=== PATIENT | male | born 1945 | race Caucasian/White ===

== ENCOUNTER 2022-12-11 13:19 | Outpatient (CLI) | payer MEDICARE, SELFPAY ==
--- NOTE | ~2022-12-11 | PE_ITS ---
EXAMINATION: PET_PETPSMAST_PT DATE: 12/11/2022 16:28 INDICATION: Malignant neoplasm of prostate. TECHNIQUE: 8.448 mCi of piflufolastat F-18 was administered intravenously. Low dose computed tomograp hy (CT) images were acquired from the base of the brain to the proximal thighs for attenuation correc tion and anatomic localization. Automated exposure control was employed. Dose-length product (DLP) wa s 484 mGy-cm. Positron emission tomography (PET) images were acquired in the same distribution. COMPARISON: None FINDINGS: Head/neck: There are no pathologically enlarged lymph nodes. Chest: There is mild scarring in right upper lobe. A calcified left lung nodule and calcified mediast inal lymph nodes are consistent with old granulomatous disease. There is mild atelectasis bilaterally . No pleural effusion. The heart size is normal. There are coronary artery calcifications. No pericar dial effusion. There is a small sliding hiatal hernia. Abdomen/pelvis/proximal thighs: Calcifications in the liver and spleen are consistent with old granul omatous disease. The gallbladder, pancreas, adrenal glands, and kidneys are normal. There is calcifie d atherosclerosis of the aorta and many of the other arteries. The prostate is mildly enlarged. There is increased activity in the prostate involving its left-sided and middle thirds with maximum SUV of 18.4. There are bilateral inguinal hernias containing fat. There is diverticulosis of the colon with out evidence of diverticulitis. The appendix is normal. There are no dilated loops of bowel. There ar e no pathologically enlarged lymph nodes. There is no free intraperitoneal fluid. There is no osseous malignancy. IMPRESSION: 1. Mildly enlarged prostate with increased activity, consistent with primary malignancy. No evidence of metastatic disease. Reviewed, dictated and finalized at location A. IMPRESSION: 1. Mildly enlarged prostate with increased activity, consistent with primary ma lignancy. No evidence of metastatic disease.
== END 2022-12-11 13:20 | disposition home or self-care (01) ==
PROVIDERS: Visit Provider Urology
DX: C61 Malignant neoplasm of prostate (principal); N40.0 Benign prostatic hyperplasia without lower urinary tract symptoms
CPT/HCPCS: 78815; A9595

== ENCOUNTER 2023-03-19 18:10 | Emergency (ER) | payer MEDICARE, SELFPAY ==
[2023-03-19] VITALS (19 sets, daily range): BP systolic 142–177; BP diastolic 68–90; PULSE 64–78; RESP 15–24; TEMP 36.5–36.6; O2SAT 96–100
--- NOTE | ~2023-03-19 | XR_ITS ---
EXAMINATION: XR chest 1V portable DATE: 03/19/2023 18:38 INDICATION: Shortness of breath. TECHNIQUE: A single frontal view of the chest was obtained. COMPARISON: PET CT 12/11/2022 FINDINGS: There is no pneumonia, pleural effusion, or pneumothorax. The heart size is normal. IMPRESSION: 1. No acute cardiopulmonary disease. Reviewed, dictated and finalized at location E. TATION OPERATOR
--- NOTE | 2023-03-19 18:22 | ECG_ITS ---
Measurements Intervals [place] Rate: 69 P: 40 ID: [id number] QRS: 11 QRSD: 89 T: -7 QT: 401 QTc: 431 Interpretive Statements SINUS RHYTHM NONSPECIFIC ST ABNORMALITY BORDERLINE ECG NO PREVIOUS ECG AVAILABLE FOR COMPARISON Electronically Signed On 03-20-2023 15:23:05 SOCK LINING EXAMINER by Jer Cespedes M.D.
[2023-03-19 18:36] LABS: Glucose Point of Care 210 mg/dl (65-105)
[2023-03-19 18:37] LABS: Basophils Absolute Auto 0.03 K/mm3 (0.00-0.10); Basophils Percent Auto 0.4 % (0.0-1.0); Eosinophils Absolute Auto 0.11 K/mm3 (0.02-0.50); Eosinophils Percent Auto 1.6 % (1.0-6.0); Hematocrit 38.4 % (37.0-46.0); Hemoglobin 13.6 g/dL (12.4-15.3); Immature Granulocyte Absolute 0.02 K/mm3 (0.00-0.00); Immature Granulocyte Percent A 0.3 % (0.0-0.0); Lymphocytes Absolute Auto 2.42 K/mm3 (1.10-4.50); Mean Corpuscular HGB Conc 35.4 g/dL (32.0-36.0); Mean Corpuscular Hemoglobin 31.7 pg (27.0-31.0); Mean Corpuscular Volume 89.5 fL (78.0-102.0); Mean Platelet Volume 9.6 fl (8.7-11.0); Monocytes Absolute Auto 0.42 K/mm3 (0.10-0.90); Monocytes Percent Auto 6.1 % (2.0-11.0); Neutrophils Absolute Auto 3.9 K/mm3 (1.7-7.2); Neutrophils Percent Auto 56.6 % (50.0-70.0); Platelet Count Result 148 K/mm3 (150-420); Red Blood Count 4.29 M/mm3 (4.70-6.10); Red Cell Distribution Width 12.6 % (11.6-14.4); White Blood Count 6.9 K/mm3 (4.8-10.8)
[2023-03-19] MEDS: SODIUM CHLORIDE 0.9% IV 1,000 ML 999 ML IV CONT (18:38)
[2023-03-19] MEDS: ASPIRIN 81 MG CHEWABLE TABLET 324 MG PO (18:38)
[2023-03-19] MEDS: MAG HYDROX/AL HYDROX/SIMETH 30 ML UDC PO (18:38)
--- NOTE | 2023-03-19 18:48 | PC.NURSE ---
PT IS RESTING ON STRETCHER WITH AT BEDSIDE, WATCHING TV WITHOUT DISTRESS. IVF ARE INFUSING ORDERED WITHOUT DIFFICULTY. NAD NOTED. WILL CONTINUE TO MONITOR.
[2023-03-19 18:51] LABS: INR 0.9; Partial Thromboplastin Time 25.9 SEC (23.90-30.70); Prothrombin Time 10.3 Seconds (9.50-12.10)
--- NOTE | 2023-03-19 18:56 | ED.GENADULT ---
HPI - General Adult General Chief complaint: Chest Pain Stated complaint: chest pain Time Seen by Provider: 03/19/23 18:20 History of Present Illness HPI narrative: This is a 77-year-old male history type 2 diabetes presenting with chest pain. Patient says at 3:00 a.m. he developed an achy pain in the center of his chest radiating to his L arm/jaw. It was severe at that time that is now completely resolved. Pain comes and goes throughout the day. He had similar symptoms last week. No exacerbating symptoms. Pain is not associated with diaphoresis, nausea, vomiting, diarrhea, exertion. Patient has never had a cardiac workup. no other complaints. Related Data Home Medications Medication Instructions Recorded Confirmed metformin 500 mg tablet,extended 50 mg PO BID 03/19/23 03/19/23 release 24 hr Allergies Allergy/AdvReac Type Severity Reaction Status Date / Time No Known Allergies Allergy Unknown Verified 03/19/23 18:24 [facility] Past Medical History Medical History Diabetes Social History Social History Smoking status: Never smoker Alcohol intake: never Exam Narrative: APPEARANCE: No apparent distress. Head: atraumatic. EYES: EOMI, NOSE: Atraumatic NECK: Trachea midline RESPIRATORY: No increased rate of breathing , clear to auscultation CARDIOVASCULAR: RRR, no peripheral edema ABDOMINAL: Non-distended, soft nontender no guarding or rebound MUSCULOSKELETAl: No obvious deformities NEURO: Alert. Moving 4/4 extremities SKIN:: Warm, dry. Normal color PSYCHIATRIC: Normal affect Course Vital Signs Vital signs: Vital Signs Temperature 97.7 F 03/19/23 18:10 Pulse Rate 72 03/19/23 18:10 Respiratory Rate 20 03/19/23 18:10 Blood Pressure 177/76 H 03/19/23 18:10 Pulse Oximetry 100 03/19/23 18:10 Oxygen Delivery Room Air 03/19/23 18:10 Temperature 97.7 F 03/19/23 18:10 Pulse Rate 70 03/19/23 21:01 Respiratory Rate 24 H 03/19/23 21:01 Blood Pressure 143/71 H 03/19/23 21:01 Pulse Oximetry 97 03/19/23 21:01 Oxygen Delivery Room Air 03/19/23 18:15 Medical Decision Making MDM Narrative Medical decision making narrative: -Course: 77-year-old male presenting with intermittent chest pain throughout the day. High sensitivity troponin came back elevated at 228.5. Initial ekg and repeat showed nonspecific T-wave changes 3 in AVF. patient started on Lovenox, given aspirin. patient will be transferred to outside hospital for NSTEMI. 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 Metabolic panel unremarkable. hsTrop 228 -> pending Independent EKG interpretation: Rhythm [sinus], Rate [69], [place] -[normal], [place] -[normal], QRS [narrow], QTC [normal], T waves -[ nonspecific changes in 3 and AVF], ST Segments - [Negative for concerning elevations] Final interpretations: normal sinus rhythm nonspecific T-wave changes 3 and AVF. repeat unchanged. Chest x-ray unremarkable. -Discussion of Management/Consultants:[facility] Transfer LineDr. Mcdaniels - Hospitalist -Interventions: 324 asa, Lovenox, maalox -Shared decision making / Disposition: Transferred. Vital Signs Vital Signs: Vital Signs Temperature 97.7 F 03/19/23 18:10 Pulse Rate 72 03/19/23 18:10 Respiratory Rate 20 03/19/23 18:10 Blood Pressure 177/76 H 03/19/23 18:10 Pulse Oximetry 100 03/19/23 18:10 Oxygen Delivery Room Air 03/19/23 18:10 Temperature 97.7 F 03/19/23 18:10 Pulse Rate 70 03/19/23 21:01 Respiratory Rate 24 H 03/19/23 21:01 Blood Pressure 143/71 H 03/19/23 21:01 Puls
--- NOTE | 2023-03-19 19:00 | PC.NURSE ---
Report received, Pt resting, VSS, monitor shows SR. Pt states he remains pain free, awaiting lab tests and results.
[2023-03-19 19:08] LABS: Alanine Aminotransferase 32 U/L (16-63); Albumin Level 3.6 g/dL (3.4-5.0); Alkaline Phosphatase 72 U/L (46-116); Anion Gap 6 mmol/L (8-16); Aspartate Amino Transferase 19 U/L (15-37); Bilirubin,Total 0.5 mg/dL (0.00-1.00); Blood Urea Nitrogen 8 mg/dL (7-18); Calcium 8.7 mg/dL (8.5-10.1); Carbon Dioxide 31 mmol/L (21-32); Chloride 100 mmol/L (98-108); Estimated CRCL calculation 49 ml/min; Estimated Glomerular Filt Rate > 60; Glucose 237 mg/dL (70-99); Lipase 35 U/L (16-77); Magnesium 1.8 mg/dL (1.8-2.4); Osmolality Calculated 290 mOsm/kg (285-295); Potassium 3.5 mmol/L (3.5-5.1); Sodium 137 mmol/L (136-145); Total Protein 6.3 g/dL (6.4-8.2)
[2023-03-19 19:10] LABS: Troponin I 228.5 ng/L (0.00-60.4)
--- NOTE | 2023-03-19 19:25 | PC.NURSE ---
ERP Dr Neumann in to discuss abnormal lab values of elevated trop level and recommends transfer to manager operations at [place]. Pt not sure at this time if he wants to go due to feeling well. Again advised need for transfer to cardiology and discussed in length possible outcomes of not going to [facility] operations.
--- NOTE | 2023-03-19 19:34 | PC.NURSE ---
POC discussed between pt and his and they have decided to go for transfer and see cardiology.
--- NOTE | 2023-03-19 19:40 | ECG_ITS ---
Measurements Intervals [place] Rate: 65 P: 36 MA: 161 QRS: 7 QRSD: 90 T: -15 QT: 409 QTc: 426 Interpretive Statements SINUS RHYTHM NONSPECIFIC ST ABNORMALITY BORDERLINE ECG COMPARED TO ECG 03/19/2023 18:27:49 NO SIGNIFICANT CHANGES Electronically Signed On 03-20-2023 15:23:25 DIRECTOR OF REIMBURSEMENT by Jer Cespedes M.D.
[2023-03-19] MEDS: ENOXAPARIN 100 MG/ML SYRINGE (19:59)
--- NOTE | 2023-03-19 20:30 | PC.NURSE ---
Pt resting, condition stable, talking on phone to family. Awaiting call backs for transfer.
[2023-03-19 21:44] LABS: Troponin I 336.1 ng/L (0.00-60.4)
--- NOTE | 2023-03-19 22:04 | PC.NURSE ---
Pt taken to BR and back to bed, he denies any c/p or SOB. Monitor continues to show SR and VSS at this time. Awaiting call back for report to be given.
--- NOTE | 2023-03-19 22:36 | PC.NURSE ---
Pt sitting bedside and update on transfer and room dispostion given to pts . [facility] will transfer pt to [facility]. Pt danni, MAU.
--- NOTE | 2023-03-19 22:55 | PC.NURSE ---
Report given [facility] and pt transferred to cot s difficulty. VSS, pt stable at time of transfer.
== END 2023-03-19 23:00 | disposition short-term general hospital (02) ==
PROVIDERS: Emergency Provider Emergency Medicine; PCP Family Medicine
DX: I21.4 Non-ST elevation (NSTEMI) myocardial infarction (principal); E11.9 Type 2 diabetes mellitus without complications; Z79.84 Long term (current) use of oral hypoglycemic drugs
CPT/HCPCS: 36415; 71045; 80053; 82948; 83690; 83735; 84484; 85025; 85610; 85730; 93005; 96360; 96372; 99291; A9270; J1650; J7030

== ENCOUNTER 2023-08-19 08:00 | Outpatient (RCR) | payer MEDICARE, SELFPAY | END 2023-08-19 14:34 | disposition home or self-care (01) | PROVIDERS: PCP Family Medicine; Visit Provider Internal Medicine Cardiovascular Disease | DX: I21.4 Non-ST elevation (NSTEMI) myocardial infarction (principal); I25.10 Atherosclerotic heart disease of native coronary artery without angina pectoris; Z95.1 Presence of aortocoronary bypass graft | CPT/HCPCS: 93798 ==

== ENCOUNTER 2023-08-20 08:46 | Outpatient (CLI) | payer MEDICARE, SELFPAY ==
[2023-08-20 09:53] LABS: Alanine Aminotransferase 53 U/L (16-63); Alkaline Phosphatase 63 U/L (46-116); Anion Gap 14 mmol/L (4-12); Aspartate Amino Transferase 32 U/L (15-37); Blood Urea Nitrogen 16 mg/dL (7-18); Calcium 8.7 mg/dL (8.5-10.1); Carbon Dioxide 22 mmol/L (21-32); Chloride 104 mmol/L (98-108); Estimated Glomerular Filt Rate > 60; Glucose 158 mg/dL (70-99); Osmolality Calculated 294 mOsm/kg (285-295); Potassium 4.5 mmol/L (3.5-5.1); Sodium 140 mmol/L (136-145); Total Protein 6.6 g/dL (6.4-8.2)
[2023-08-21 15:30] LABS: Cholesterol 95 mg/dL (0-200); HDL Direct 41 mg/dL (40-60); LDL Cholesterol Calculated 26 mg/dL (<130); Triglycerides 139 mg/dL (0-150)
== END 2023-08-20 08:47 | disposition home or self-care (01) ==
LOC: CHSLAB 08:52
PROVIDERS: PCP Family Medicine
DX: I21.4 Non-ST elevation (NSTEMI) myocardial infarction (principal); I25.10 Atherosclerotic heart disease of native coronary artery without angina pectoris; Z95.1 Presence of aortocoronary bypass graft; E11.9 Type 2 diabetes mellitus without complications; E78.5 Hyperlipidemia, unspecified
CPT/HCPCS: 36415; 80053; 80061

== ENCOUNTER 2023-12-30 14:00 | Emergency (ER) | payer MEDICARE, SELFPAY ==
[2023-12-30] VITALS (12 sets, daily range): BP systolic 113–136; BP diastolic 65–78; PULSE 71–80; RESP 13–22; TEMP 36.4–37; O2SAT 91–98
--- NOTE | ~2023-12-30 | XR_ITS ---
EXAMINATION: XR chest 1V portable DATE: 12/30/2023 14:29 INDICATION: Shortness of breath. TECHNIQUE: A single frontal view of the chest was obtained. COMPARISON: Chest single view 03/19/2023 FINDINGS: A calcified left lung nodule and calcified mediastinal lymph nodes are consistent with old granulomatous disease. There is no pneumonia, pleural effusion, or pneumothorax. The heart size is no rmal. Median sternotomy wires and mediastinal surgical clips are seen, likely from prior coronary art porfirio bypass grafting. IMPRESSION: 1. No acute cardiopulmonary disease. Reviewed, dictated and finalized at location A.
--- NOTE | 2023-12-30 14:02 | ECG_ITS ---
Test Date: 2023-12-30 14:07:05 Measurements Intervals [place] Rate: 75 P: 72 AR: 162 QRS: 32 QRSD: 121 T: 17 QT: 393 QTc: 442 Interpretive Statements SINUS RHYTHM RIGHT BUNDLE BRANCH BLOCK BASELINE ARTIFACT- II, III, AVL, AVF, V4-V6 ABNORMAL ECG No previous ECG available for comparison Electronically Signed On 12-30-2023 14:53:51 CDT by Ermias Christopher D.O.
--- NOTE | 2023-12-30 14:04 | ED.GENADULT ---
HPI - General Adult General Chief complaint: Chest Pain Stated complaint: DIZZY Time Seen by Provider: 12/30/23 14:03 History of Present Illness HPI narrative: Pato is a 78 M with a PMH of type II diabetes, HLD, CAD that presented to the ED after his sample clerk referred him. He has had a few days of intermittent sharp chest pain associated with some dyspnea and lightheadedness. He currently does not have any chest pain. No vomiting. Related Data Home Medications Medication Instructions Recorded Confirmed metformin 500 mg tablet,extended 50 mg PO BID 03/19/23 12/30/23 release 24 hr Allergies Allergy/AdvReac Type Severity Reaction Status Date / Time No Known Allergies Allergy Unknown Verified 12/30/23 14:13 Review of Systems Review of Systems: All systems reviewed & are unremarkable except as noted in HPI and below PMFSH Past Medical History Medical History Diabetes Social History Social History Smoking status: Never smoker Alcohol intake: never Exam Const: General: cooperative, healthy appearing, comfortable, no acute distress, well developed, alert, awake and Physically active Orientation/consciousness: oriented to person, oriented to place and oriented to time HENMT: Head: normal to inspection, normocephalic and atraumatic Ears: hearing grossly normal bilaterally and external ears normal Face/Nose/Sinus: Normal external nose present Eyes: General: appearance normal, both eyes and all related structures Periorbital: periorbital findings normal Sclera: sclerae normal Pupils: Equal, round and reactive pupils present Neck: Neck: normal visual inspection Chest: Chest palpation & inspection: normal inspection of the chest Resp: Effort & Inspection: normal respiratory effort, able to speak in complete sentences and no respiratory distress Auscultation: clear to auscultation bilaterally Cardio: Jugular venous distension: no JVD Rate: regular rate Rhythm: regular rhythm GI: Inspection: normal to inspection GI Palp: Yes Soft to palpation Auscultation: normal bowel sounds Skin: General skin exam: normal color and no rashes or lesions noted Neuro: General: oriented to person, oriented to place and oriented to time Cranial nerves: Yes Equal, round and reactive pupils present Extrem: General: normal to inspection Course Course Emergency Course: Ordered labs, CXR, and EKG EKG showed NSR with a rate of 75, right bundle branch block but no ST elevation/depression EXAMINATION: XR chest 1V portable DATE: 12/30/2023 14:29 INDICATION: Shortness of breath. TECHNIQUE: A single frontal view of the chest was obtained. COMPARISON: Chest single view 03/19/2023 FINDINGS: A calcified left lung nodule and calcified mediastinal lymph nodes are consistent with old granulomatous disease. There is no pneumonia, pleural effusion, or pneumothorax. The heart size is normal. Median sternotomy wires and mediastinal surgical clips are seen, likely from prior coronary artery bypass grafting. IMPRESSION: 1. No acute cardiopulmonary disease. CBC was unremarkable. Low tropinin and only mildly elevated BNP. Given that he has no chest pain, dyspnea, cough or lightheadedness currently his symptoms are unlikely to be cardiac. We discussed slow position changes and to f/u with his sample clerk. Vital Signs Vital signs: Vital Signs Pulse Oximetry 95 12/30/23 14:00 Temperature 98.6 F 12/30/23 14:02 Pulse Rate 74 12/30/23 15:10 Respiratory Rate 16 12/30/23 15:10 Blood Pressure 136/70 12/30/23 15:11 Pulse Oximetry 96 12/30/23 15:10 Oxygen Delivery Room Air 12/30/23 14:02 Medical Decision Making Vital Signs Vital Signs: Vital Signs Pulse Oximetry 95 12/30/23 14:00 Temperature 98.6 F 12/30/23 14:02 Pulse Rate 74 12/30/23 15:10 Respiratory Rate 1
[2023-12-30 14:29] LABS: Basophils Absolute Auto 0.04 K/mm3 (0.00-0.10); Basophils Percent Auto 0.4 % (0.0-1.0); Eosinophils Absolute Auto 0.06 K/mm3 (0.02-0.50); Eosinophils Percent Auto 0.6 % (1.0-6.0); Hematocrit 36.7 % (37.0-46.0); Hemoglobin 13.1 g/dL (12.4-15.3); Immature Granulocyte Absolute 0.03 K/mm3 (0.00-0.00); Immature Granulocyte Percent A 0.3 % (0.0-0.0); Lymphocytes Absolute Auto 3.22 K/mm3 (1.10-4.50); Lymphocytes Percent Auto 33.1 % (18.0-42.0); Mean Corpuscular HGB Conc 35.7 g/dL (32-36); Mean Corpuscular Hemoglobin 31.3 pg (27.0-31.0); Mean Corpuscular Volume 87.6 fL (78.0-102.0); Mean Platelet Volume 9.8 fl (8.7-11.0); Monocytes Percent Auto 6.2 % (2.0-11.0); Neutrophils Absolute Auto 5.77 K/mm3 (1.70-7.20); Neutrophils Percent Auto 59.4 % (50.0-70.0); Platelet Count Result 166 K/mm3 (150-420); Red Blood Count 4.19 M/mm3 (4.70-6.10); Red Cell Distribution Width 12.5 % (11.6-14.4); White Blood Count 9.7 K/mm3 (4.8-10.8)
[2023-12-30 14:41] LABS: Prothrombin Time 10.8 Seconds (9.50-12.1)
[2023-12-30 14:50] LABS: Alanine Aminotransferase 56 U/L (16-63); Albumin Level 3.5 g/dL (3.4-5.0); Alkaline Phosphatase 71 U/L (46-116); Anion Gap 7 mmol/L (4-12); Aspartate Amino Transferase 33 U/L (15-37); Bilirubin,Total 1.1 mg/dL (0.00-1.00); Blood Urea Nitrogen 12 mg/dL (7-18); Calcium 9.1 mg/dL (8.5-10.1); Carbon Dioxide 28 mmol/L (21-32); Chloride 103 mmol/L (98-108); Estimated CRCL calculation 54 ml/min; Estimated Glomerular Filt Rate > 60; Glucose 137 mg/dL (70-99); Magnesium 1.8 mg/dL (1.8-2.4); NT Pro B Type Natriuretic Pept 500 pg/mL (0-450); Osmolality Calculated 287 mOsm/kg (285-295); Potassium 4.1 mmol/L (3.5-5.1); Sodium 138 mmol/L (136-145); Total Protein 6.7 g/dL (6.4-8.2); Troponin I 8.9 ng/L (0.00-60.4)
== END 2023-12-30 15:30 | disposition home or self-care (01) ==
PROVIDERS: Emergency Provider Family Medicine; PCP Family Medicine
DX: R07.89 Other chest pain (principal); E78.5 Hyperlipidemia, unspecified; E11.9 Type 2 diabetes mellitus without complications; I25.10 Atherosclerotic heart disease of native coronary artery without angina pectoris; Z79.84 Long term (current) use of oral hypoglycemic drugs
CPT/HCPCS: 36415; 71045; 80053; 83735; 83880; 84484; 85025; 85610; 93005; 99284

== ENCOUNTER 2023-12-31 11:49 | Emergency (ER) | payer MEDICARE, SELFPAY ==
[2023-12-31] VITALS (11 sets, daily range): BP systolic 110–138; BP diastolic 56–74; PULSE 71–80; RESP 17–22; TEMP 36.8; O2SAT 97–100
--- NOTE | ~2023-12-31 | XR_ITS ---
XR chest 1V portable 12/31/2023 12:15 Indication: Shortness of breath Procedure: AP portable chest Comparison: 12/30/2023 Findings: Status post median sternotomy for CABG. Heart size is normal. No focal air space disease, p ulmonary edema, pleural effusion or suspected pneumothorax. Impression: 1: No acute cardiopulmonary disease. Reviewed, dictated and finalized at location B. Impression: 1: No acute cardiopulmonary disease.
--- NOTE | 2023-12-31 11:55 | ECG_ITS ---
Test Date: 2023-12-31 12:03:55 Measurements Intervals [place] Rate: 78 P: 62 MT: 158 QRS: 11 QRSD: 125 T: 22 QT: 398 QTc: 455 Interpretive Statements SINUS RHYTHM RIGHT BUNDLE BRANCH BLOCK [120+ ms QRS DURATION, UPRIGHT V1, 40+ ms S IN I/aVL/V4/V5/V6] ABNORMAL ECG Compared to ECG 12/30/2023 14:07:05 No significant changes Electronically Signed On 01-01-2024 13:44:43 CDT by Perez Wiggins M.D.
--- NOTE | 2023-12-31 12:00 | ED.NEUROSD ---
HPI - Neuro Symptoms/Deficit General Chief Complaint: Weakness Stated Complaint: numbness in left side Time Seen by Provider: 12/31/23 11:54 Source: patient and family Mode of arrival: ambulatory Limitations: no limitations History of Present Illness HPI Narrative: Patient is a 78-year-old male with a left-sided body deficit since yesterday. This started late afternoon yesterday. He was in the ER for chest pain which was a negative evaluation yesterday. He has been having slight difficulties over the last few days which may represent TIA. He started to have numbness on his left upper extremity more than his left lower extremity and further having some weakness on the left upper and lower extremity. He presents 1 day after symptoms began. He is not tPA candidate. Also our CT scan machine is down at this time and he will be transferred quickly to another facility to get Neurology and CT scan. Onset (ago): day(s) (1) Timing confirmed by: spouse Location: left face, left arm and left leg History of same: No Severity: moderate Quality: weak and numb Relieving factors: none Exacerbating factors: none Context: gradual onset On Anticoagulants: No Associated symptoms: shortness of breath Treatments Prior to Arrival: other medication Related Data Home Medications Medication Instructions Recorded Confirmed metformin 500 mg tablet,extended 50 mg PO BID 03/19/23 12/31/23 release 24 hr atorvastatin 40 mg tablet 40 mg PO DAILY 12/31/23 12/31/23 gabapentin 300 mg capsule 300 mg PO HS 12/31/23 12/31/23 Allergies Allergy/AdvReac Type Severity Reaction Status Date / Time No Known Allergies Allergy Unknown Verified 12/31/23 11:58 Review of Systems Review of Systems: All systems reviewed & are unremarkable except as noted in HPI and below Constitutional: Constitutional: Reports no additional constitutional complaints Eyes: Eyes: Reports no additional eye complaints ENT: Reports system reviewed and no additional complaints, except as documented Cardiovascular: Cardiovascular: Reports no additional cardiovascular complaints Respiratory: Respiratory: Reports no additional respiratory complaints Gastrointestinal: Gastrointestinal: Reports no additional gastrointestinal complaints Genitourinary: Genitourinary: Reports no additional male genitourinary complaints Musculoskeletal: Musculoskeletal: Reports no additional musculoskeletal complaints Integumentary/Breasts: Skin/Breast: Reports system reviewed and no additional complaints, except as docu Neurologic: Reports system reviewed and no additional complaints, except as documented Psychiatric: Psychiatric: Reports no additional psychiatric complaints Endocrine: Endocrine: Reports no additional endocrine complaints Hematologic/Lymphatic: Hematologic/Lymphatic: Reports no additional hematologic/lymphatic complaints Allergic/Immunologic: Allergic/Immunologic: Reports no additional allergic/immunologic complaints [facility] Past Medical History Medical History Diabetes Social History Social History Smoking status: Never smoker Alcohol intake: never Exam Const: General: healthy appearing Nutritional Appearance: well nourished Orientation/consciousness: patient oriented x3 HENMT: Head: normal to inspection Ears: external ears normal Face/Nose/Sinus: Normal external nose present Eyes: Conjunctivae: conjunctivae normal Pupils: Equal, round and reactive pupils present EOM: EOMs intact bilaterally Neck: Neck: normal visual inspection Chest: Chest palpation & inspection: normal inspection of the chest Resp: Effort & Inspection: normal respiratory effort and not labored Auscultation: clear to auscultation bilaterally and no crackles Cardio: Rate: regular rate Rhythm: regular rhythm Heart sounds: no murmurs GI: Inspection: non-distended GI Palp:
[2023-12-31 12:09] LABS: Glucose Point of Care 144 mg/dl (65-105)
[2023-12-31 12:12] LABS: Basophils Absolute Auto 0.03 K/mm3 (0.00-0.10); Basophils Percent Auto 0.4 % (0.0-1.0); Eosinophils Absolute Auto 0.05 K/mm3 (0.02-0.50); Eosinophils Percent Auto 0.6 % (1.0-6.0); Hematocrit 36.2 % (37.0-46.0); Hemoglobin 12.9 g/dL (12.4-15.3); Immature Granulocyte Absolute 0.03 K/mm3 (0.00-0.00); Immature Granulocyte Percent A 0.4 % (0.0-0.0); Lymphocytes Absolute Auto 2.75 K/mm3 (1.10-4.50); Lymphocytes Percent Auto 35.3 % (18.0-42.0); Mean Corpuscular HGB Conc 35.6 g/dL (32-36); Mean Corpuscular Hemoglobin 31.2 pg (27.0-31.0); Mean Corpuscular Volume 87.4 fL (78.0-102.0); Mean Platelet Volume 9.6 fl (8.7-11.0); Monocytes Absolute Auto 0.49 K/mm3 (0.10-0.90); Monocytes Percent Auto 6.3 % (2.0-11.0); Neutrophils Absolute Auto 4.43 K/mm3 (1.70-7.20); Platelet Count Result 146 K/mm3 (150-420); Red Blood Count 4.14 M/mm3 (4.70-6.10); Red Cell Distribution Width 12.4 % (11.6-14.4); White Blood Count 7.8 K/mm3 (4.8-10.8)
[2023-12-31 12:26] LABS: Partial Thromboplastin Time 26.1 Sec (23.9-30.70)
[2023-12-31 12:28] LABS: Alanine Aminotransferase 53 U/L (16-63); Albumin Level 3.6 g/dL (3.4-5.0); Alkaline Phosphatase 72 U/L (46-116); Anion Gap 8 mmol/L (4-12); Aspartate Amino Transferase 32 U/L (15-37); Bilirubin,Total 1.2 mg/dL (0.00-1.00); Blood Urea Nitrogen 10 mg/dL (7-18); Calcium 9.2 mg/dL (8.5-10.1); Carbon Dioxide 28 mmol/L (21-32); Chloride 103 mmol/L (98-108); Estimated CRCL calculation 52 ml/min; Estimated Glomerular Filt Rate > 60; Glucose 150 mg/dL (70-99); Osmolality Calculated 290 mOsm/kg (285-295); Potassium 3.9 mmol/L (3.5-5.1); Sodium 139 mmol/L (136-145); Total Protein 6.8 g/dL (6.4-8.2)
--- NOTE | 2023-12-31 12:59 | PC.NURSE ---
NO CHANGE IN PT STATUS AT THIS TIME. PT IS AWAITING ACCEPTING FACILITY FOR TRANSFER. AT BEDSIDE, UPDATED ON STATUS. WILL CONTINUE TO MONITOR. VSS.
--- NOTE | 2023-12-31 13:02 | PC.NURSE ---
CT NOT PERFORMED AT THIS FACILITY DUE TO MACHINE BEING DOWN FOR REPAIRS UPON PT ARRIVAL
--- NOTE | 2023-12-31 13:13 | PC.NURSE ---
PT REPORTS DAUGHTER NOTICED THE UNSTEADY GAIT AT 1300 YESTERDAY. PT REPORTS HE NOTICED THE SYMPTOMS AROUND 1700. PT REPORTS HE HAS NOTICED NO CHANGE TODAY FROM ONSET OF SYMPTOMS. PT REPORTS HE HAS HAD INTERMITTENT DIZZINESS OVER THE PAST 3-4 DAYS. PT HAS BEEN ACCEPTED TO [facility] FOR TRANSFER TO ER FOR CT SCAN PRIOR TO ADMISSION. PT AND ARE AWARE OF PLAN OF CARE. WILL CONTINUE TO MONITOR.
== END 2023-12-31 13:46 | disposition short-term general hospital (02) ==
PROVIDERS: Emergency Provider Emergency Medicine
DX: I63.9 Cerebral infarction, unspecified (principal); E11.9 Type 2 diabetes mellitus without complications; Z79.84 Long term (current) use of oral hypoglycemic drugs; Z79.899 Other long term (current) drug therapy
CPT/HCPCS: 36415; 71045; 80053; 82948; 85025; 85610; 85730; 93005; 99285

== ENCOUNTER 2024-01-07 14:58 | Outpatient (RCR) | payer MEDICARE, SELFPAY ==
--- NOTE | 2024-01-07 16:14 | OPREHPOC ---
Outpatient Therapy Plan of Care This is a Multidisciplinary Plan of Care that may contain components documented by all disciplines (PT, OT, and ST.) PT Problem 1 PT Problem #1 Knowledge Deficit PT Goal 1 Goal / Goal Update The patient will be independent in a home exercise program. Target Visit 4 PT Problem 2 PT Problem #2 Impaired Balance PT Goal 1 Goal / Goal Update 1. The patient will demonstrate at least 20/28 on the Tinetti Balance Scale score indicating a decreased fall risk. 2. The patient will perform the TUG test in under 12 seconds indicating a low fall risk. 3. The patient will report no falls. Target Visit 10 PT Problem 3 PT Problem #3 Impaired Functional Mobil PT Goal 1 Goal / Goal Update The patient will be able to ambulate 1,200 feet with the least restrictive assistive device in order to improve community/household ambulation. The patient will ascend/descend a flight of stairs reciprocally to improve household navigation. Target Visit 10 PT Problem 4 PT Problem #4 Impaired Strength PT Goal 1 Goal / Goal Update The patient will demonstrate right ankle eversion strength of 4-/5 or greater to improve stability for balance and gait. Target Visit 10
--- NOTE | 2024-01-07 16:15 | PTOPEVAL1 ---
Assessment and note entered by Nicolasa Burrell, PT Evaluation Information Assessment Status Evaluation Diagnosis CVA Other ICD-10 Condition Codes ( R26.89, I63.9 PT) Onset 12/30/23 Subjective Information Pato Snell reports he had a stroke on . He was changing the oil on his car and he kept stumbling and he was having numbness in the left UE and LE so he went to the ER. He had a chest x- ray and had blood work that came back normal so he was sent home. The next day the numbness returned in his left hand so he went back to the ER. He was transferred to a higher level hospital and he had EKG, chest x-ray, MRI of his brain, and an ultrasound of his neck, heart, and side. He was diagnosed with two small strokes so he was admitted for 2 days. He is having numbness in his left hand and he is dropping items. He is also having difficulty walking noting his left foot will turn in occasionally. He is also noting burning on the front of his left lower leg and numbness around the left outer ankle. He denies falling and has not been using an assistive device . He lives with his and his son. They reside in a 1.5 story home and he has steps inside and outside the house. He has 5 steps to get in the house and 13 inside the home between levels. He does have a bathroom on the main level but the bedrooms are on the 2nd level. He is taking stairs one at a time currently and there is a hand rail on the right side when he is ascending. He does not have grab bars and does not own any assistive devices. Past medical history is significant for a quadruple bypass on 03/19/23. He is currently wearing a hear monitor for 14 days. Reported Pain Level Pain Score 0: Self Report Assessment PT Clinical Summary Pato Snell presents 8 days s/p CVA. He has difficulty with walking, balance, and stair negotiation. He objectively demonstrates decreased left LE strength primarily in the ankle, decreased static and dynamic balance, and altered gait. He is a high fall risk at this time. He will benefit from skilled PT to address these limitations. Plan of Care Interventions Gait Training,Neuro Re-education,Patient/Caregiver Educati,Therapeutic Activities,Therapeutic Exercise PT Services Indicated Yes Treatment Frequency and 3 times a week for 10 visits Duration These treatments will address the objective and functional deficits as defined above. The patient will be advanced safely and appropriately in order for the patient to progress towards his/her prior level of function. Additional exercises will be introduced and as well as a comprehensive home exercise program upon discharge, if needed, ?to ensure carryover of functional gains achieved in the clinic. This treatment plan has been reviewed and agreement upon by the patient.
--- NOTE | 2024-01-08 11:38 | BUOTOPEVAL ---
Assessment and note entered by Susana Elizondo OT Evaluation Information Assessment Status Evaluation Diagnosis CVA ICD-10 Condition Codes (OT) M62.81 Onset 12/30/2023 Reported Pain Level Pain Score 0: Self Report Pain Score 0: Self Report Assessment OT Clinical Summary The patient is a 78 year old male who was referred to outpatient OT due to imbalance and weakness from CVA. The patient has PMH of CABG, external heart monitor placement. The patient previously was independent with all ADLs/IADLs, and demonstrated WNL UE function with strength, coordination, proprioception and reaction time. The patient now demonstrates moderate dysfunction of L UE due to stroke, the patient demonstrate moderately impaired fine motor coordination, minimal to moderate proprioceptive dysfunction of L arm, moderate numbness of L hand, 4- to 4/5 strength of L arm, and delayed reaction time for L UE and visual tracking that affect his ability to care for grandchildren, perform IADLs such as changing car oil and cooking meals. He demonstrates ataxia with L UE during any functional movement during assessment. The patient requires skilled OT to address deficits and return to [facility] for maximal independence. Plan of Care Interventions Therapeutic Exercise,Manual Therapy,Neuro Re- education,Therapeutic Activities,Hot Pack/Cold Pack,Cognitive Function,Sensory Integrative Techn, Self-Care/Home Management OT Services Indicated Yes Treatment Frequency and 3x/week for 12 visits. Duration These treatments will address the objective and functional deficits as defined above. The patient will be advanced safely and appropriately in order for the patient to progress towards his/her prior level of function. Additional exercises will be introduced and as well as a comprehensive home exercise program upon discharge, if needed, ?to ensure carryover of functional gains achieved in the clinic. This treatment plan has been reviewed and agreement upon by the patient.
--- NOTE | 2024-01-08 11:44 | OPREHPOC ---
Outpatient Therapy Plan of Care This is a Multidisciplinary Plan of Care that may contain components documented by all disciplines (PT, OT, and ST.) PT Problem 1 PT Problem #1 Knowledge Deficit PT Goal 1 Goal / Goal Update The patient will be independent in a home exercise program. Target Visit 4 PT Problem 2 PT Problem #2 Impaired Balance PT Goal 1 Goal / Goal Update 1. The patient will demonstrate at least 20/28 on the Tinetti Balance Scale score indicating a decreased fall risk. 2. The patient will perform the TUG test in under 12 seconds indicating a low fall risk. 3. The patient will report no falls. Target Visit 10 PT Problem 3 PT Problem #3 Impaired Functional Mobil PT Goal 1 Goal / Goal Update The patient will be able to ambulate 1,200 feet with the least restrictive assistive device in order to improve community/household ambulation. The patient will ascend/descend a flight of stairs reciprocally to improve household navigation. Target Visit 10 PT Problem 4 PT Problem #4 Impaired Strength PT Goal 1 Goal / Goal Update The patient will demonstrate right ankle eversion strength of 4-/5 or greater to improve stability for balance and gait. Target Visit 10 OT Problem 1 OT Problem #1 Knowledge Deficit OT Goal 1 Goal / Goal Update The patient will demonstrate 100% knowledge and return demonstration of UE HEP in order to improve function of L UE for IADLs. Target Visit 12 OT Problem 2 OT Problem #2 Impaired Coordination OT Goal 1 Goal / Goal Update The patient will demonstrate increased fine motor coordination by performing 9-hole peg test in < 35 seconds with L UE for increased success in buttoning shirts. Target Visit 12 OT Goal 2 Goal / Goal Update The patient will demonstrate increase proprioceptive awareness and fluid movement of L UE with minimal to no ataxia noticed during functional tasks. Target Visit 12 OT Problem 3 OT Problem #3 Impaired Strength OT Goal 1 Goal / Goal Update The patient will demonstrate increased UE strength by demonstrating 5/5 muscle strength of L UE shoulder and elbow for ability to change his oil. Target Visit 12 OT Problem 4 OT Problem #4 Impaired Functional ADLs OT Goal 1 Goal / Goal Update The patient will demonstrate increased reaction time and visual scanning by performing Trails A in <50 seconds with no mistakes and perform Target Tap on [employer] machine striking >55 taps with L UE maintaining shoulder in flexion and >30 taps with handrail taps in order to decrease ataxia and improve function of L UE for homemaking tasks. - Target tap (set to 5:5 for 60 seconds - balance off) +41 taps with L UE up throughout assessment +25 taps with L UE touching hand rail after each strike Target Visit 12 OT Goal 2 Goal / Goal Update The patient will increase executive function skills by performing Trails B in 119 seconds with no mistakes in order to achieve norms needed to perform grocery shopping safely. Target Visit 12
--- NOTE | 2024-01-29 09:44 | OPREHPOC ---
Outpatient Therapy Plan of Care This is a Multidisciplinary Plan of Care that may contain components documented by all disciplines (PT, OT, and ST.) PT Problem 1 PT Problem #1 Knowledge Deficit PT Goal 1 Goal / Goal Update The patient will be independent in a home exercise program. Target Visit 4 Progress Met PT Problem 2 PT Problem #2 Impaired Balance PT Goal 1 Goal / Goal Update 1. The patient will demonstrate at least 20/28 on the Tinetti Balance Scale score indicating a decreased fall risk. 2. The patient will perform the TUG test in under 12 seconds indicating a low fall risk. 3. The patient will report no falls. Target Visit 10 Progress Met PT Problem 3 PT Problem #3 Impaired Functional Mobil PT Goal 1 Goal / Goal Update The patient will be able to ambulate 1,200 feet with the least restrictive assistive device in order to improve community/household ambulation. The patient will ascend/descend a flight of stairs reciprocally to improve household navigation. Target Visit 10 Progress Met PT Problem 4 PT Problem #4 Impaired Strength PT Goal 1 Goal / Goal Update The patient will demonstrate right ankle eversion strength of 4-/5 or greater to improve stability for balance and gait. Target Visit 10 Progress Met OT Problem 1 OT Problem #1 Knowledge Deficit OT Goal 1 Goal / Goal Update The patient will demonstrate 100% knowledge and return demonstration of UE HEP in order to improve function of L UE for IADLs. Target Visit 12 OT Problem 2 OT Problem #2 Impaired Coordination OT Goal 1 Goal / Goal Update The patient will demonstrate increased fine motor coordination by performing 9-hole peg test in < 35 seconds with L UE for increased success in buttoning shirts. Target Visit 12 OT Goal 2 Goal / Goal Update The patient will demonstrate increase proprioceptive awareness and fluid movement of L UE with minimal to no ataxia noticed during functional tasks. Target Visit 12 OT Problem 3 OT Problem #3 Impaired Strength OT Goal 1 Goal / Goal Update The patient will demonstrate increased UE strength by demonstrating 5/5 muscle strength of L UE shoulder and elbow for ability to change his oil. Target Visit 12 OT Problem 4 OT Problem #4 Impaired Functional ADLs OT Goal 1 Goal / Goal Update The patient will demonstrate increased reaction time and visual scanning by performing Trails A in <50 seconds with no mistakes and perform Target Tap on [employer] machine striking >55 taps with L UE maintaining shoulder in flexion and >30 taps with handrail taps in order to decrease ataxia and improve function of L UE for homemaking tasks. - Target tap (set to 5:5 for 60 seconds - balance off) +41 taps with L UE up throughout assessment +25 taps with L UE touching hand rail after each strike Target Visit 12 OT Goal 2 Goal / Goal Update The patient will increase executive function skills by performing Trails B in 119 seconds with no mistakes in order to achieve norms needed to perform grocery shopping safely. Target Visit 12
--- NOTE | 2024-01-29 09:44 | PTOPDC ---
Assessment and note entered by Nicolasa Burrell, PT Evaluation Information Assessment Status Discharge Diagnosis CVA Other ICD-10 Condition Codes ( R26.89. I63.9 PT) Onset 12/30/23 Subjective Information Pato Snell reports he is getting stronger since he started PT but still gets winded easily when he used to be fine. He denies falls and feels his balance is good most of the time. He denies pain. Reported Pain Level Pain Score 0: Self Report Pain Score 0: Self Report Assessment PT Clinical Summary Pato Snell has completed 10 skilled PT visits following a CVA. He is reporting no falls, no pain, and improved strength. His only complaint is getting winded easily. He objectively demonstrates improved strength in the LE, improved balance both static and dynamic, improved gait, and improved endurance. He is independent in a home exercise program for LE strength and balance exercises. He was educated today on continue aerobic activity independently and referred to participate in our fall prevention class twice a week. He has met all PT goals and will be discharged to an independent HEP. Plan of Care PT Services Indicated No
--- NOTE | 2024-02-03 12:07 | OTOPPROG ---
Assessment and note entered by Susana Elizondo, OT Evaluation Information Assessment Status Progress Assessment OT Clinical Summary The patient demonstrates significant progress toward fine motor coordination, UE strength, decreased ataxic movements with L UE, increased visual scanning and executive function skills, and improvement in proprioceptive sensation. These improvements have resulted in the patient demonstrating increased skill and accuracy with fine motor coordination tasks and decreased the amount of dropped items throughout his daily life. He reports he still will have jerky movements that make doing meal preparation hard and he thinks that OT has been very beneficial for him. He reports he is not back to where he was before his stroke but feels much stronger and has better coordination. The patient continues to require skilled OT to address fine motor coordination, ataxic movements/proprioceptive sensation, L UE strength without compensation from other muscle groups, and in hand manipulation with L UE to improve homemaking tasks. The patient demonstrates good progress toward goals and reasonable expectation for improvement with POC. Plan of Care Interventions Therapeutic Exercise,Manual Therapy,Neuro Re- education,Therapeutic Activities,Hot Pack/Cold Pack,Cognitive Function,Electrical Stimulation, Sensory Integrative Techn,Self-Care/Home Management OT Services Indicated Yes Treatment Frequency and 2x/week for 10 visits. Duration These treatments will address the objective and functional deficits as defined above. The patient will be advanced safely and appropriately in order for the patient to progress towards his/her prior level of function. Additional exercises will be introduced and as well as a comprehensive home exercise program upon discharge, if needed, ?to ensure carryover of functional gains achieved in the clinic. This treatment plan has been reviewed and agreement upon by the patient.
--- NOTE | 2024-03-04 12:27 | PCOTNOTE ---
Patient no showed appointment this date. Patient was called with no answer.
--- NOTE | 2024-03-17 12:55 | BUOTOPDC ---
Assessment and note entered by Susana Elizondo, OT Evaluation Information Assessment Status Discharge Diagnosis CVA ICD-10 Condition Codes (OT) Generalized muscle weakness M62.81 Onset 12/30/2023 Reported Pain Level Pain Score 0: Self Report Pain Score 0: Self Report Pain Score 0: Self Report Pain Score 0: Self Report Pain Score 0: Self Report Pain Score 0: Self Report Pain Score 0: Self Report Pain Score 0: Self Report Pain Score 0: Self Report Pain Score 0: Self Report Pain Score 0: Self Report Pain Score 0: Self Report Pain Score 0: Self Report Pain Score 0: Self Report Pain Score 0: Self Report Pain Score 0: Self Report Pain Score 0: Self Report Pain Score 0: Self Report Pain Score 0: Self Report Pain Score 0: Self Report Pain Score 0: Self Report Pain Score 0: Self Report Pain Score 0: Self Report Pain Score 0: Self Report Pain Score 0: Self Report Pain Score 0: Self Report Pain Score 0: Self Report Pain Score 0: Self Report Pain Score 0: Self Report Pain Score 0: Self Report Pain Score 0: Self Report Pain Score 0: Self Report Assessment OT Clinical Summary The patient demonstrates significant progress in visual scanning, executive functioning, proprioceptive awareness, fine motor coordination and UE strength leading to increased independence and endurance with daily tasks. The patient demonstrates functional safety awareness and minimal fatigue during all resistive exercises. He demonstrates good control of L hand during fine motor tasks and demonstrates no ataxia as he did at [facility]. The patient demonstrates 0% on QuickDASH questionnaire with no issues during daily life tasks. The patient has met all of his goals and is discharged at this time with UE HEP to continue to maintain function. The patient demonstrates good understanding. Plan of Care Interventions Therapeutic Exercise,Manual Therapy,Neuro Re- education,Therapeutic Activities,Hot Pack/Cold Pack,Cognitive Function,Electrical Stimulation, Sensory Integrative Techniques,Self-Care/Home Management OT Services Indicated No
--- NOTE | 2024-03-17 12:55 | OPREHPOC ---
Outpatient Therapy Plan of Care This is a Multidisciplinary Plan of Care that may contain components documented by all disciplines (PT, OT, and ST.) PT Problem 1 PT Problem #1 Knowledge Deficit PT Goal 1 Goal / Goal Update The patient will be independent in a home exercise program. Target Visit 4 Progress Met PT Problem 2 PT Problem #2 Impaired Balance PT Goal 1 Goal / Goal Update 1. The patient will demonstrate at least 20/28 on the Tinetti Balance Scale score indicating a decreased fall risk. 2. The patient will perform the TUG test in under 12 seconds indicating a low fall risk. 3. The patient will report no falls. Target Visit 10 Progress Met PT Problem 3 PT Problem #3 Impaired Functional Mobility PT Goal 1 Goal / Goal Update The patient will be able to ambulate 1,200 feet with the least restrictive assistive device in order to improve community/household ambulation. The patient will ascend/descend a flight of stairs reciprocally to improve household navigation. Target Visit 10 Progress Met PT Problem 4 PT Problem #4 Impaired Strength PT Goal 1 Goal / Goal Update The patient will demonstrate right ankle eversion strength of 4-/5 or greater to improve stability for balance and gait. Target Visit 10 Progress Met OT Problem 1 OT Problem #1 Knowledge Deficit OT Goal 1 Goal / Goal Update The patient will demonstrate 100% knowledge and return demonstration of UE HEP in order to improve function of L UE for IADLs. GOAL MET Target Visit 12 Progress Met OT Problem 2 OT Problem #2 Impaired Coordination OT Goal 1 Goal / Goal Update The patient will demonstrate increased fine motor coordination by performing 9-hole peg test in < 28 seconds with L UE for increased success in buttoning shirts. PN 02/03/24 GOAL PARTIALLY MET; UPGRADED 31 seconds DISCHARGE: 29 seconds; DISCONTINUE Target Visit 22 Progress Met OT Goal 2 Goal / Goal Update The patient will demonstrate increase proprioceptive awareness and fluid movement of L UE with minimal to no ataxia noticed during functional tasks. DISCHARGE; GOAL MET PN 02/03/24 GOAL PARTIALLY MET; CONTINUE Proprioception test finger to nose vision occluded 75% accuracy with increased fluid movement; minimal ataxic movement Target Visit 22 Progress Partially Met OT Problem 3 OT Problem #3 Impaired Strength OT Goal 1 Goal / Goal Update The patient will demonstrate increased UE strength by demonstrating 5/5 muscle strength of L UE shoulder and elbow for ability to change his oil. PN 02/03/24 GOAL PARTICALLY MET; CONTINUE 4+/5 DISHCARGE 5/5 GOAL MET Target Visit 22 Progress Met OT Problem 4 OT Problem #4 Impaired Functional ADLs OT Goal 1 Goal / Goal Update The patient will demonstrate increased reaction time and visual scanning by performing Trails A in <50 seconds with no mistakes in order to decrease ataxia and improve function of L UE for homemaking tasks. DISCHARGE; 67 (38 second trial when educated to not focus on timer) SECONDS; DISCONTINUE (due to plateau in progress and patient's functional executive functioning skills in daily life. He demonstrates good safety awareness and has assist from his as needed. The patient demonstrates good memory. PN 02/03/24 PARTIALLY MET; CONTINUE TRAILS A GOAL DISCONTINUE KORE BALANCE GOAL DUE TO MET 58x with continuous arm up 33x with arm tapping rail Trails A: 73 seconds SOC - Target tap (set to 5:5 for 60 seconds - balance off) +41 taps with L UE up throughout assessment +25 taps with L UE touching hand rail after each strike Target Visit 22 Progress Partially Met OT Goal 2 Goal / Goal Update The patient will increase executive function skills by performing Trails B in 119 seconds with no mistakes in order to achieve norms needed to perform grocery shopping safely. DISCHARGE; 133 seconds DISCONTINUE (due to plateau in progress, the patient demonstrates anxious behavior during assessment as he was preoccupied with timer) PN 02/03/24; PROGRESSING; CONTINUE 1 mistake 157 seconds (2:37) Target Visit 22 Progress Partially Met
== END 2024-03-16 10:45 | disposition home or self-care (01) ==
LOC: CHSPT 14:58
PROVIDERS: Visit Provider Family Medicine
DX: R53.1 Weakness (principal); R26.81 Unsteadiness on feet; I69.959 Hemiplegia and hemiparesis following unspecified cerebrovascular disease affecting unspecified side
CPT/HCPCS: 97110; 97112; 97150; 97161; 97166; 97530; 97750

== ENCOUNTER 2024-05-18 11:11 | Outpatient (CLI) | payer MEDICARE, SELFPAY ==
[2024-05-18 12:28] LABS: Prostate Specific Antigen 19.6 ng/mL (< OR = 4.0)
--- OUTSIDE RECORDS SUMMARY | 2024-05-18 14:14 | XMS_ITS | Encounter Summary ---
Author Organization [facility] Address [address] [place] [address] Care Team Providers Care Sex Therapist Name Role Phone Willie Zuniga MD Primary Care Provider Encounter Details Date Type Department Care Team (Late st Contact Info) Description 08/22/2023 Abstract [facility] [address] Bladimir Porter MA Social History Tobacco Use Types Packs/Day Years Used Date Smoking Tobacco: Former Smokeless Tobacco: Never Alcohol Use Standard Drinks/Week Comments Not Currently 0 (1 standard drink = 0.6 oz pur e alcohol) OASIS D0700: Social Isolation Answer Da te Recorded Frequency of experiencing loneliness or isolatio n Never 04/08/2023 OASIS A1250: Transportation Answer Date Recorded Lack of Transportation (Medical) No 04/08/2023 Lack of Transportation (Non-Medical) No 04/08/2023 Patient Unable or Declines to Respond No 04/08/2023 OASIS B1300: Health Literacy Answer Enrique e Recorded Frequency of needing help to read materials from doctor or pharmacy Never 04/08/2023 [facility] Utilities Answer Date Recorded In the past 12 months has th e [employer], gas, oil, or water [employer] [facility] in [place] threatened to shut off services in your home? No 03/20/2023 Humiliation, Afraid, Rape, and Kick questionnair e Answer Date Recorded Within the last year, have y ou been afraid of your partner or ex-partner? No 03/20/2023 Within the last year, have y ou been humiliated or emotionally abused in other ways by your partner or ex-partner? No Within the last year, have y ou been kicked, hit, slapped, or otherwise physically hurt by your partner or ex-partner? No 03/20/2023 Within the last year, have y ou been raped or forced to have any kind of sexual activity by your partner or ex-partner? No 03/20/2023 Overall Financial Resource Strain (CARDIA) Answe r Date Recorded How hard is it for you to pa y for the very basics like food, housing, medical care, and heating? Not hard at all 03/20/2023 Hunger Vital Sign Answer Date Recorded Within the past 12 months, y ou worried that your food would run out before you got the money to buy more. Never true 03/20/20 23 Within the past 12 months, t he food you bought just didn't last and you didn't have money to get more. Never true 03/20/2023 PRAPARE - Transportation Answer Date Re corded In the past 12 months, has l ack of transportation kept you from medical appointments or from getting medications? No 03/02 In the past 12 months, has l ack of transportation kept you from meetings, work, or from getting things needed for daily living? No 03/20/2023 Housing Stability Vital Sign Answer Enrique e Recorded In the last 12 months, was t here a time when you were not able to pay the mortgage or rent on time? No 03/20/2023 In the last 12 months, how many places have you lived? 1 03/20/2023 In the last 12 months, was t here a time when you did not have a steady place to sleep or slept in a [place] [facility] [place] (including now)? 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 Answer Date of Assessment Author Status No 03/20/2023 12:02 AM Anna Alaniz RN Active * Do you have serious difficulty walking or climbing stairs? Answer Date of Assessment Author Status No 03/20/2023 12:02 AM Anna Alaniz RN Active * Do you have difficulty dressing or bathing? Answer Date of Assessment Author Status No 03/20/2023 12:02 AM Anna Alaniz RN Active * Because of a physical, mental, or emotional condition, do you have difficulty doing errands alone such as visiting a doctor's office or shopping? Answer Date of Assessment Author Status No 03/20/2023 12:02 AM Anna Alaniz RN Active documented as of this encounter Mental Status * Because of a physical, mental, or emotional condition, do you have serious difficulty concentrating, remembering, or making decisions? Answer Entry Date Author Status No 03/20/2023 12:02 AM Anna Alaniz RN Active documented in this encounter Plan of Treatment Upcoming Encounters Date Type Department Care Team (Late st Contact Info) Description 09/10/2024 11:15 AM CDT Office Visit [facility] [address] [place] [id number] Daniel Ryan MD [address] [address] documented as of this encounter Visit Diagnoses Not on filedocumented in this encounter Care Teams Sex Therapist Relationship Specialty Start Date End Date Willie Zuniga MD [address] [place] [phone] PCP - General FAMILY PRACTICE 03/20/23 documented as of this encounter
--- OUTSIDE RECORDS SUMMARY | 2024-05-18 14:14 | XMS_ITS ---
Author Organization Unknown Address [address] [place] [phone] Phone Care Team Providers Care Hotel Custodian Name Role Phone JAYY Thomson Attending Unavailable Immunization Immunization Date Status Additional Notes Code Code System pneumococcal polysaccharide PPV23 01/28/2017 Completed 33 CVX Pneumococcal conjugate PCV 13 12/30/2017 Completed 133 CVX Influenza, high-dose, quadrivalent, PF 01/26/2020 Completed 197 CVX Influenza, high-dose, quadrivalent, PF 02/14/2022 Completed 197 CVX Influenza, adjuvanted, quadrivalent, PF 01/09/2023 Completed 205 CVX COVID-19, mRNA, LNP-S, PF, 1 00 mcg/0.5mL dose or 50 mcg/0.25mL dose 06/17/2020 Completed 207 CVX COVID-19, mRNA, LNP-S, PF, 1 00 mcg/0.5mL dose or 50 mcg/0.25mL dose 07/15/2020 Completed 207 CVX Social History Type Status Start Date End Date Code Code Syst em Sex Male Hospital Discharge Instructions Should you have any questions prior to discharge, please contact a member of your healthcare team. If you have left the hospital and have any questions, please contact your primary care physician. Reason For Referral No Data Found Plan of Treatment No Data Found Encounters Encounter Diagnosis Start Date Code Code Sys tem Cerebral infarction 01/07/2024 [id number] SNOMED-C T Personal Care Team Section Performer Name Performer Role Active Date Inactive Da JOSE ALFREDO Clay PCP - Primary care physician 2024-01-07
--- OUTSIDE RECORDS SUMMARY | 2024-05-18 14:14 | XMS_ITS | Encounter Summary ---
Author Organization [facility] Address [address] [place] [address] Care Team Providers Care Glove Sewer Name Role Phone Willie Zuniga MD Primary Care Provider [phone]- [phone] Encounter Details Date Type Department Care Team (Late st Contact Info) Description 08/22/2023 [facility] [address] [id number] Al Goel MD [facility]. [address] [id number] Social History Tobacco Use Types Packs/Day Years [...] materials from doctor or pharmacy Never 04/08/2023 [facility] Utilities Answer Date Recorded In the past 12 months has th e electric, gas, oil, or water company threatened to shut off services in your [...] money to buy more. Never true 03/20/20 Within the past 12 months, t he [...] place to sleep or slept in a senior living (including now)? No 03/20/2023 Sex and Gender Information Value Date Recorded Sex Assigned at Not on file Legal Sex Male 9:20 PM CHIN STRAP CUTTER Gender Identity Not on file Sexual Orientation [...] Description 09/10/2024 11:15 AM CDT Office Visit [facility] [address] [place] [phone] Daniel Ryan MD [address] [address] documented as of this encounter Procedures Procedure Name Priority Date/Time Associated Diagnosis Comments COMPREHENSIVE METABOLIC PANEL Routine 08/20/2023 LIPID PANEL Routine 08/20/2023 documented in this encounter Results * COMPREHENSIVE METABOLIC PANEL (08/20/2023) SODIUM S/P/B 140 GLUCOSE 158 mg/dL AST 32 BUN 16 CREATININE S/P/B 1.10 0.7 - 1.3 CALCIUM S/P/B 8.7 POTASSIUM S/P/B 4.5 CHLORIDE S/P/B 104 ALT 53 GFR ESTIMATE >60 us Default History Genericprovider LABORATORY Final Result * LIPID PANEL (08/20/2023) CHOLESTEROL 95 TRIGLYCERIDES 139 HDL 41 LDL (CALCULATED) 26 us Default History Genericprovider LABORATORY Final Result documented in this encounter Visit Diagnoses Not on filedocumented in this encounter Care Teams Glove Sewer Relationship Specialty Start Date End Date Willie Zuniga MD [address] [place] [phone] PCP - General FAMILY PRACTICE 03/20/23 documented as of this encounter
--- OUTSIDE RECORDS SUMMARY | 2024-05-18 14:14 | XMS_ITS | Clinical Summary ---
Author Organization [facility] Address [address] [place] [address] Care Team Providers Care Silverware Washer Name Role Phone Willie Zuniga MD Primary Care Provider Allergies No known active allergies Medications metFORMIN ER (GLUCOPHAGE-XR) 500 MG 24 hr tabletIndication s:diabetes Take 1 tablet (500 mg total) by mouth 2 (two) times daily. Indications: diabetes 3 Active sildenafil (VIAGRA) 100 MG tablet Take 1 tablet (100 mg total) by mouth daily as needed for Erectile Dysfunction. 4 Active gabapentin (NEURONTIN) 300 MG capsule Take 1 capsule (300 mg total) by mouth nightly at bedtime. 4 Active Nutritional Supplements (PROSTATE OR) Take 2 capsules by mouth daily. Active atorvastatin (LIPITOR) 80 MG tablet Take 1 tablet (80 mg total) by mouth daily for 30 days. 30 tablet 4 Active metoprolol succinate ER (TOPROL-XL) 50 MG 24 hr tablet Take 1 tablet by mouth once daily 90 tablet 4 Active aspirin 81 MG chewable tablet Chew 1 tablet (81 mg total) by mouth daily. 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 NSTEMI (non-ST elevated myoc ardial infarction) ([facility]) 03/19/2023 Acute hypoxemic respiratory failure due to COVID-19 ([facility]) 02/21/2020 Insomnia 02/21/2020 Type 2 diabetes mellitus ([facility]) 02/17 Resolved Problems Problem Noted Date Diagnosed Date Resolved Date Encounter for rehabilitation 03/01/2020 03/04/2020 Lactic acid acidosis 02/21/2020 020 Poor appetite 02/19/2020 03/01/2020 Diarrhea due to COVID-19 02/19/202004/2019 Nausea 02/19/2020 03/01/2020 Pneumonia due to COVID-19 virus 02/17/2020 03/04/2020 Encounters Date Type Department Care Team Description 02/20/2024 10:15 AM HARNESS TIER Office Visit [facility] [address] [place] [address] Daniel Ryan MD Baugher, Dana A, MONEY ORDER CLERK Coronary Artery Disease; Neurologic Problem 02/20/2024 Travel from Last 3 Months Immunizations Name Administration Dates Next Due Fluzone High Dose - >Age 65 (Prefilled Syringe) 01/26/2020 Social History Tobacco Use Types Packs/Day Years Used Date Smoking Tobacco: Former Smokeless Tobacco: Never Tobacco Cessation:Counseling Given: Not Answered Alcohol Use Standard Drinks/Week Comments Not Currently [...] materials from doctor or pharmacy Never 04/08/2023 B1300 Health Literacy Answer Date Recor ded How often do you need to hav e someone help you when you read instructions, pamphlets, or other written material from your doctor or pharmacy? Never 12/31/2023 C Utilities Answer Date Recorded In the past 12 months has e electric, gas, oil, or water company threatened to shut off services in your home? No 12/31/2023 Humiliation, Afraid, Rape, and Kick questionnair e Answer Date Recorded Within the last year, have y ou been afraid of your partner or ex-partner? No 12/31/2023 Within the last year, have y ou been humiliated or emotionally abused in other ways by your partner or ex-partner? No Within the last year, have y ou been kicked, hit, slapped, or otherwise physically hurt by your partner or ex-partner? No 12/31/2023 Within the last year, have y ou been raped or forced to have any kind of sexual activity by your partner or ex-partner? No 12/31/2023 Social Connection and Isolation Panel [NHANES] A nswer Date Recorded In a typical week, how many times do you talk on the phone with family, friends, or neighbors? Three times a week 12/31/2023 How often do you get togethe r with friends or relatives? Three times a week 12/31/2023 How often do you attend [facility] or adventism services? Never 12/31/2023 Do you belong to any clubs o r organizations such as anabaptism groups, unions, fraternal or athletic groups, or school groups? No 12/31/2023 How often do you attend meet ings of the clubs or organizations you belong to? Never 12/31/2023 Are you , , di vorced, , never , or living with a partner? 12/31/2023 AUDIT-C Answer Date Recorded Q1: How often do you have a drink containing alc ohol? 2-4 times a month 12/31/2023 Q2: How many drinks containi ng alcohol do you have on a typical day when you are drinking? 1 or 2 12/31/2023 Q3: How often do you have si x or more drinks on one occasion? Never 12/31/2023 Overall Financial Resource Strain (CARDIA) Answe r Date Recorded How hard is it for you to pa y for the very basics like food, housing, medical care, and heating? Not hard at all 12/31/2023 [facility] - Occupational Stress Questionnaire Answer Date Recorded Do you feel stress - tense, restless, nervous, or anxious, or unable to sleep at night because your mind is troubled all the time - these days? Not at all 12/31/2023 Exercise Vital Sign Answer Date Recorde d On average, how many days pe r week do you engage in moderate to strenuous exercise (like a brisk walk)? 0 days 12/31/2023 On average, how many minutes do you engage in exercise at this level? 0 min 12/31/2023 Hunger Vital Sign Answer Date Recorded Within the past 12 months, y ou worried that your food would run out before you got the money to buy more. Never true 12/31/19 24 Within the past 12 months, t he food you bought just didn't last and you didn't have money to get more. Never true 12/31/2023 PRAPARE - Transportation Answer Date Re corded In the past 12 months, has l ack of transportation kept you from medical appointments or from getting medications? No 04/2023 In the past 12 months, has l ack of transportation kept you from meetings, work, or from getting things needed for daily living? No 12/31/2023 Housing Stability Vital Sign Answer Enrique e [...] place to sleep or slept in a detention (including now)? No 03/20/2023 Housing Stability Vital Sign Answer Enrique e Recorded In the last 12 months, was t here a time when you were not able to pay the mortgage or rent on time? No 12/31/2023 In the past 12 months, how m any times have you moved where you were living? 1 12/31/2023 At any time in the past 12 m [facility], were you homeless or living in a detention (including now)? No 12/31/2023 Sex and Gender Information Value Date Recorded Sex Assigned at Not on file Legal Sex Male 9:20 PM HARNESS TIER Gender Identity Not on file Sexual Orientation Not on file Last Filed Vital Signs Vital Sign Reading Time Taken Comments Blood Pressure 130/70 02/20/2024 9:44 AM HARNESS TIER Pulse 67 02/20/2024 9:44 AM HARNESS TIER Temperature 36.4 C (97.5 F) 01/01/2024 11:48 AM CDT Respiratory Rate 20 01/01/2024 11:48 AM CDT Oxygen Saturation 99% 02/20/2024 9:44 AM HARNESS TIER Inhaled Oxygen Concentration - - Weight 70.3 kg (155 lb) 02/20/2024 9:44 AM HARNESS TIER Height 172.7 cm (5' 8 ) 02/20/2024 9:44 AM HARNESS TIER Body Mass Index 23.57 02/20/2024 9:44 AM HARNESS TIER Plan of Treatment Upcoming Encounters Date Type Department Care Team (Late st Contact Info) Description 09/10/2024 11:15 AM CDT [facility] [address] [place] [address] Daniel Ryan MD [facility]. [address] [address] Health Maintenance Due Date Last Done Comments Kidney Health Evaluation 1945 Diabetes: Retinopathy Eye Exam 1964 Hepatitis C 1964 DTaP, Tdap and Td Vaccines ( 1 - Tdap) 1965 Zoster Vaccines (1 of 2) 1996 Annual Medicare Wellness Visit 09/19/2011 RSV Immunization or 60+ Years (1 - 1-dose 75+ series) 2021 COVID-19 Vaccine (3 - 2023-2 5 season) 2023 07/15/2020, 06/17/2020 Influenza Adult (#1) 2023 01/26/2020 Hemoglobin A1C 07/01/2024 01/01/2024, 03/21/2023 Lipid Panel 12/31/2024 01/01/2024, 08/20/2023, 03/20/2023 Pneumococcal Vaccine: 65+ Years Completed 12/30/2017, 01/28/2017 Meningococcal B Vaccine Aged Out No l onger eligible based on patient's age to complete this topic Meningococcal Vaccine Aged Out No sachin nikhil eligible based on patient's age to complete this topic RSV Immunizations Under 20 Months Aged Out No longer eligible b ased on patient's age to complete this topic Goals Goal Patient Goal Type Associated Problems Recent Progress Patient-Stated? Author Health - patient able to perform ADLs independently Lifestyle No Yadira Bill RN Medical Devices Implanted Type Area Keg Inspector Device Identifier Shelf Expiration Date Model / Serial / Lot Wire Sternotomy Suture Kit - [id number] Implanted:Qty: 1 on 03/22/2023 by Kevin Ribeiro RNFA at [facility] Wire N/A: Sternum [id number] 05/02/2027 [id number] / / [id number] Description:WIRES X 5 Wire Sterum Suture Kit Myowire #7 04/02 Ccs-1 - [id number] Implanted:Qty: 1 on 03/22/2023 by Kevin Ribeiro RNFA at [facility] Wire N/A: Sternum A&Ibercheck [id number] 09/30/2027 [id number] / / [id number] Description:STERNAL WIRES X 2 Procedures Procedure Name Priority Date/Time Associated Diagnosis Comments LIPID PANEL Routine 01/01/2024 4:20 AM CDT HEMOGLOBIN, GLYCOSYLATED Routine 01/01/2024 4:20 AM CDT from Last 3 Months or Most Recently Relevant to Health Maintenance Results * (ABNORMAL) HEMOGLOBIN, GLYCOSYLATED (01/01/2024 4:20 AM CDT) HGB A1C 7.3(H) <5.7 % 01/01/2024 8:18 AM CDT [facility] Comment: ADA GUIDELINES 2010 5.7 TO 6.4% INCREASED RISK OF DIABETES > OR = 6.5% CONSISTENT WITH DIABETES ESTIMATED AVG GLUCOSE 163 mg/dL 01/01/2024 8:18 AM CDT [facility] 01/01/2024 4:20 AM CDT us Elizabeth Ayon MD LABORATORY Final Result [facility] [address] [place] [address], * (ABNORMAL) LIPID PANEL (01/01/2024 4:20 AM CDT) CHOLESTEROL 85 <200 MG/DL 01/01/2024 5:42 AM CDT [facility] TRIGLYCERIDES 375(H) <150 MG/DL 01/01/2024 5:42 AM CDT [facility] HDL 34(L) >40.0 MG/DL 01/01/2024 5:42 AM CDT [facility] LDL (CALCULATED) UNABLE TO CALCULATE <100 MG/DL 01/01/2024 7:31 AM CDT [facility] NON HDL CHOLESTEROL 51 <130 MG/DL 01/01/2024 5:42 AM CDT [facility] CHOL/HDL RATIO 2.5 0.0 - 4.5 01/01/2024 5:42 AM CDT [facility] VLDL CALCULATION 75(H) 5 - 55 MG/DL 01/01/2024 5:42 AM CDT [facility] LIPID INTERPRETATION 01/01/2024 5:42 AM CDT [facility] Comment: NIH CONCENSUS REPORT RECOMMENDATIONS: ADULT CHILD LOW RISK: CHOLESTEROL <200 <170 TRIGLYCERIDE <150 --- HDL >=60 --- LDL <100 <110 BORDERLINE: CHOLESTEROL 200-239 170-199 TRIGLYCERIDE 150-199 --- HDL 40-59 --- LDL 100-159 110-129 HIGH RISK: CHOLESTEROL >=240 >=200 TRIGLYCERIDE >=200 --- HDL <40 --- LDL >=160 >=130 01/01/2024 4:20 AM CDT Elizabeth Ayon MD LABORATORY Final Result [facility] [address] [place] [address], from Last 3 Months or Most Recently Relevant to Health Maintenance Insurance MEDICARE [facility] Advance Directives * Full Code (Latest Code Status on File) Date Activated Date Inactivated Comments 12/31/2023 7:39 PM 01/01/2024 6:53 PM * Full Code Date Activated Date Inactivated Comments 04/25/2023 3:21 PM 12/31/2023 2:50 PM * Full Code Date Activated Date Inactivated Comments 03/22/2023 1:37 PM 03/27/2023 3:47 PM * Full Code Date Activated Date Inactivated Comments 03/20/2023 4:56 PM 03/22/2023 1:37 PM * Full Code Date Activated Date Inactivated Comments 03/20/2023 12:42 AM 03/20/2023 4:56 PM Care Teams Silverware Washer Relationship Specialty Start Date End Date Willie Zuniga MD [address] [place] [address] PCP - General FAMILY PRACTICE 03/20/23
== END 2024-05-18 11:12 | disposition home or self-care (01) ==
LOC: CHSLAB 11:14
PROVIDERS: PCP Family Medicine; Visit Provider Urology
DX: C61 Malignant neoplasm of prostate (principal)
CPT/HCPCS: 36415; 84153

== ENCOUNTER 2024-12-01 08:10 | Outpatient (CLI) | payer MEDICARE, SELFPAY ==
--- OUTSIDE RECORDS SUMMARY | 2024-12-01 08:16 | XMS_ITS | Clinical Summary ---
Author Organization [facility] Address [address] [place] [address] Care Team Providers Care Loan Consultant Name Role Phone Willie Zuniga MD Primary [...] for 30 days. 30 tablet 4 Active aspirin 81 MG chewable tablet Chew 1 tablet (81 mg total) by mouth daily. Active metoprolol succinate ER (TOPROL-XL) 50 MG 24 hr tablet Take 1 tablet (50 mg total) by mouth daily. 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 NSTEMI (non-ST elevated myoc ardial infarction) ([facility]) 03/19/2023 Acute hypoxemic respiratory failure due to COVID-19 ([facility]) 02/21/2020 Insomnia 02/21/2020 Type 2 diabetes mellitus ([facility]) 02/17 Resolved Problems Problem Noted Date Diagnosed Date Resolved Date Encounter for rehabilitation 03/01/2020 03/04/2020 Lactic acid acidosis 02/21/2020 020 Poor appetite 02/19/2020 03/01/2020 Diarrhea due to COVID-19 02/19/202004/2019 Nausea 02/19/2020 03/01/2020 Pneumonia due to COVID-19 virus 02/17/2020 03/04/2020 Encounters Date Type Department Care Team Description 09/10/2024 11:15 AM CDT Office Visit [facility] [address] [place] [phone] Daniel Ryan MD Coronary Artery Disease; Neurologic Problem; Hypertension; Lipids 09/10/2024 Travel from Last 3 Months Immunizations Immunization Administration Dates Next Due Fluzone High Dose - >Age 65 (Prefilled Syringe) 01/26/2020 Influenza Adult (Generic) 01/09/2023,02/14/2022 Pneumococcal (Pneumovax 23) 01/28/2017 Pneumococcal (Prevnar 13) 12/30/2017 Social History Tobacco Use Types Packs/Day Years [...] from your doctor or pharmacy? Never 12/31/2023 [facility] Utilities Answer Date Recorded In the past [...] week 12/31/2023 How often do you attend chur ch or sikhism services? Never 12/31/2023 Do you belong to any clubs o r organizations such as episcopalian groups, unions, fraternal or athletic groups, or [...] and heating? Not hard at all 12/31/2023 [facility] [place] [facility] - Occupational Stress [...] place to sleep or slept in a fpc (including now)? No 03/20/2023 Housing Stability Vital Sign Answer Enrique e Recorded In the last 12 months, was t here a time when you were not able to pay the mortgage or rent on time? No 12/31/2023 In the past 12 months, how m any times have you moved where you were living? 1 12/31/2023 At any time in the past 12 m [place], were you homeless or living in a fpc (including now)? No 12/31/2023 Sex and Gender Information Value Date Recorded Sex Assigned at Not on file Legal Sex Male 9:20 PM RELATIONSHIP ASSOC Gender Identity Not on file Sexual Orientation Not on file Last Filed Vital Signs Vital Sign Reading Time Taken Comments Blood Pressure 150/80 09/10/2024 10:28 AM CDT Pulse 82 09/10/2024 10:28 AM CDT Temperature 36.4 C (97.5 F) 01/01/2024 11:48 AM CDT Respiratory Rate 20 01/01/2024 11:48 AM CDT Oxygen Saturation 99% 02/20/2024 9:44 AM RELATIONSHIP ASSOC Inhaled Oxygen Concentration - - Weight 70.3 kg (155 lb) 09/10/2024 10:28 AM CDT Height 172.7 cm (5' 8) 09/10/2024 10:28 AM CDT Body Mass Index 23.57 09/10/2024 10:28 AM CDT Plan of Treatment Upcoming Encounters Date Type Department Care Team (Late st Contact Info) Description 03/18/2025 10:15 AM RELATIONSHIP ASSOC [facility] [address] [place] [address] Helga Cordova, ERI [address] [place] [address] Health Maintenance Due Date Last Done Comments Kidney Health Evaluation 1945 Diabetes: Retinopathy Eye Exam 1964 Hepatitis C 1964 DTaP, Tdap and Td Vaccines ( 1 - Tdap) 1965 Zoster Vaccines (1 of 2) 1996 Annual Medicare Wellness Visit 09/19/2011 RSV Immunization or 60+ Years (1 - 1-dose 75+ series) 2021 COVID-19 Vaccine (3 - 2023-2 5 season) 2023 07/15/2020, 06/17/2020 Hemoglobin A1C 07/01/2024 01/01/2024, 03/21/2023 Lipid Panel 12/31/2024 01/01/2024, 08/20/2023, 03/20/2023 Pneumococcal Vaccine: 50+ Years Completed 12/30/2017, 01/28/2017 Meningococcal B Vaccine [...] Bill RN Medical Devices Implanted Type Area Hvac Sales Engineer Device Identifier Shelf Expiration Date Model / Serial / Lot Wire Sternotomy Suture Kit - [id number] Implanted:Qty: 1 on 03/22/2023 by Kevin Ribeiro RNFA at [facility] Wire N/A: Sternum [id number] 05/02/2027 [id number] / / [id number] Description:WIRES X 5 Wire Sterum Suture Kit Myowire #7 / Ccs-1 - [id number] Implanted:Qty: 1 on 03/22/2023 by Kevin Ribeiro RNFA at [facility] Wire N/A: Sternum A&Cuff-Protect [id number] 09/30/2027 [id number] / / [id number] Description:STERNAL WIRES X 2 Procedures Procedure Name Priority Date/Time Associated Diagnosis Comments LIPID PANEL Routine 01/01/2024 4:20 AM CDT HEMOGLOBIN, GLYCOSYLATED Routine 01/01/2024 4:20 AM CDT from Last 3 Months or Most Recently Relevant to Health Maintenance Results * (ABNORMAL) HEMOGLOBIN, GLYCOSYLATED (01/01/2024 4:20 AM CDT) HGB A1C 7.3(H) <5.7 % 01/01/2024 8:18 AM CDT [facility] Comment: ADA GUIDELINES 2010 5.7 TO 6.4% INCREASED RISK OF DIABETES > OR = 6.5% CONSISTENT WITH DIABETES ESTIMATED AVG GLUCOSE 163 mg/dL 01/01/2024 8:18 AM CDT [facility] 01/01/2024 4:20 AM CDT us Elizabeth Ayon MD LABORATORY Final Result [facility] [address] [place] [address], [place] [phone] * (ABNORMAL) LIPID PANEL (01/01/2024 4:20 AM CDT) CHOLESTEROL 85 <200 MG/DL 01/01/2024 5:42 AM CDT [facility] TRIGLYCERIDES 375(H) <150 MG/DL 01/01/2024 5:42 AM CDT [facility] HDL 34(L) >40.0 MG/DL 01/01/2024 5:42 AM CDT [facility] LDL (CALCULATED) UNABLE TO CALCULATE <100 MG/DL 01/01/2024 7:31 AM CDT [facility] NON HDL CHOLESTEROL 51 <130 MG/DL 01/01/2024 5:42 AM CDT [facility] CHOL/HDL RATIO 2.5 0.0 - 4.5 01/01/2024 5:42 AM CDT [facility] VLDL CALCULATION 75(H) 5 - 55 MG/DL 01/01/2024 5:42 AM CDT [facility] LIPID INTERPRETATION 01/01/2024 5:42 AM CDT [facility] Comment: NIH CONCENSUS REPORT RECOMMENDATIONS: ADULT CHILD LOW RISK: CHOLESTEROL <200 <170 TRIGLYCERIDE <150 --- HDL >=60 --- LDL <100 <110 BORDERLINE: CHOLESTEROL 200-239 170-199 TRIGLYCERIDE 150-199 --- HDL 40-59 --- LDL 100-159 110-129 HIGH RISK: CHOLESTEROL >=240 >=200 TRIGLYCERIDE >=200 --- HDL <40 --- LDL >=160 >=130 01/01/2024 4:20 AM CDT us Elizabeth Ayon MD LABORATORY Final Result [facility] [address] [place] [address], [place] [phone] from Last 3 Months or Most Recently Relevant to Health Maintenance Insurance MEDICARE [facility] Advance Directives * Full Code (Latest Code [...] 12:42 AM 03/20/2023 4:56 PM Care Teams Loan Consultant Relationship Specialty Start Date End Date Willie Zuniga MD [address] [place] [phone] PCP - General FAMILY PRACTICE 03/20/23
--- OUTSIDE RECORDS SUMMARY | 2024-12-01 08:16 | XMS_ITS | Encounter Summary ---
Author Organization [facility] Address [address] [place] [address] Care Team Providers Care Professor Of Literature Name Role Phone Willie Zuniga MD Primary Care Provider Encounter Details Date Type Department Care Team (Late st Contact Info) Description 08/22/2023 [facility] [address] [id number] Al Goel MD [facility]. [address] [phone] Social History Tobacco Use Types Packs/Day Years [...] doctor or pharmacy Never 04/08/2023 [facility] Utilities Answer Date Recorded In [...] place to sleep or slept in a long term (including now)? No 03/20/2023 Sex and Gender Information Value Date Recorded Sex Assigned at Not on file Legal Sex Male 9:20 PM GOVERNMENT AFFAIRS FELLOW Gender Identity Not on file Sexual Orientation Not on file documented as of this encounter Functional Status * Are you deaf or do you have serious difficulty hearing Answer Date of Assessment Author Status No 03/20/2023 12:02 AM Loreta Michael R N Active * Are you blind or do you have serious difficulty seeing, even when wearing glasses? Answer Date of Assessment Author Status No 03/20/2023 12:02 AM Loreta Michael R N Active * Do you have serious difficulty walking or climbing stairs? Answer Date of Assessment Author Status No 03/20/2023 12:02 AM Loreta Michael R N Active * Do you have difficulty dressing or bathing? Answer Date of Assessment Author Status No 03/20/2023 12:02 AM Loreta Michael R N Active * Because of a physical, mental, or emotional condition, do you have difficulty doing errands alone such as visiting a doctor's office or shopping? Answer Date of Assessment Author Status No 03/20/2023 12:02 AM Loreta Michael R N Active documented as of this encounter Mental Status * Because of a physical, mental, or emotional condition, do you have serious difficulty concentrating, remembering, or making decisions? Answer Entry Date Author Status No 03/20/2023 12:02 AM Loreta Michael R N Active documented in this encounter Plan of Treatment Upcoming Encounters Date Type Department Care Team (Late st Contact Info) Description 03/18/2025 10:15 AM GOVERNMENT AFFAIRS FELLOW Office Visit [facility] [address] [place] [phone] Helga Cordova FNP [address] [place] [phone] documented as of this encounter Procedures Procedure [...] on filedocumented in this encounter Care Teams Professor Of Literature Relationship Specialty Start Date End Date Willie Zuniga MD [address] [place] [phone] PCP - General FAMILY PRACTICE 03/20/23 documented as of this encounter
--- OUTSIDE RECORDS SUMMARY | 2024-12-01 08:16 | XMS_ITS | Encounter Summary ---
Author Organization [facility] Address [address] [place] [address] Care Team Providers Care Blanket Cutter Hand Name Role Phone Willie Zuniga MD Primary Care Provider [phone] Encounter Details Date Type Department Care Team (Late st Contact Info) Description 08/22/2023 Abstract [facility] [address] Bladimir Porter [place] Social History Tobacco Use [...] materials from doctor or pharmacy Never 04/08/2023 [facility] Utilities Answer Date Recorded In the past 12 months has th e [employer], gas, oil, or water [employer] threatened to shut off services in your [...] place to sleep or slept in a retirement (including now)? No 03/20/2023 Sex and Gender Information Value Date Recorded Sex Assigned at Not on file Legal Sex Male 9:20 PM SHAKE CUTTER Gender Identity Not on file Sexual Orientation Not on file documented as of this encounter Functional Status * Are you deaf or do you have serious difficulty hearing Answer Date of Assessment Author Status No 03/20/2023 12:02 AM SHAKE CUTTER Loreta Montes De Oca R N Active * Are you blind [...] Assessment Author Status No 03/20/2023 12:02 AM SHAKE CUTTER Loreta Montes De Oca R N Active * Because of a [...] st Contact Info) Description 03/18/2025 10:15 AM SHAKE CUTTER [facility] [address] [place] [phone] Helga Cordova FNP [address] [place] [phone] documented as of this encounter Visit Diagnoses Not on filedocumented in this encounter Care Teams Blanket Cutter Hand Relationship Specialty Start Date End Date Willie Zuniga MD [address] [place] [phone] PCP - General FAMILY PRACTICE 03/20/23 documented as of this encounter
[2024-12-01 08:47] LABS: Hemoglobin A1C 9.3 % (<5.7)
[2024-12-01 09:13] LABS: Alanine Aminotransferase 31 U/L (6-50); Albumin Level 4.4 g/dL (3.5-5.1); Alkaline Phosphatase 80 U/L (38-126); Anion Gap 9 mmol/L (4-12); Aspartate Amino Transferase 33 U/L (17-59); Bilirubin,Total 1.7 mg/dL (0.2-1.3); Blood Urea Nitrogen 9 mg/dL (9-20); Calcium 9.8 mg/dL (8.4-10.2); Carbon Dioxide 28 mmol/L (22-30); Chloride 103 mmol/L (98-107); Cholesterol 98 mg/dL (0-200); Estimated Glomerular Filt Rate > 60; Glucose 224 mg/dL (65-110); HDL Direct 34 mg/dL; Osmolality Calculated 295 mOsm/kg (285-295); Potassium 5.0 mmol/L (3.4-5.0); Sodium 140 mmol/L (137-145); Total Protein 6.7 g/dL (6.3-8.2); Triglycerides 213 mg/dL (<150)
== END 2024-12-01 08:11 | disposition home or self-care (01) ==
LOC: CHSLAB 08:14
PROVIDERS: PCP Family Medicine; Visit Provider Family Medicine
DX: E11.9 Type 2 diabetes mellitus without complications (principal); I25.10 Atherosclerotic heart disease of native coronary artery without angina pectoris; R79.89 Other specified abnormal findings of blood chemistry; E55.9 Vitamin D deficiency, unspecified; Z79.899 Other long term (current) drug therapy
CPT/HCPCS: 36415; 80053; 80061; 82306; 83036